=== PATIENT | female | born 1970 | race Caucasian/White ===

== ENCOUNTER 2025-05-09 21:13 | Emergency (ER) | payer MEDICARE, MEDICAID ==
[~2025-05-09] VITALS: Ht 162.6 cm; Wt 104.3 kg
[2025-05-09 21:24] VITALS: O2SAT 98
[2025-05-09] MEDS ORDERED: ATOR10TA PO (21:52)
[2025-05-09] MEDS ORDERED: METF-442 PO (21:53)
[2025-05-09] MEDS ORDERED: INSU100V37 SQ (21:53)
== END 2025-05-09 23:48 | disposition left against medical advice (07) ==
LOC: ER 21:20
DX: R42 Dizziness and giddiness (principal); H92.09 Otalgia, unspecified ear; E03.9 Hypothyroidism, unspecified; E11.9 Type 2 diabetes mellitus without complications; E78.5 Hyperlipidemia, unspecified; Z79.4 Long term (current) use of insulin; Z79.84 Long term (current) use of oral hypoglycemic drugs; Z53.21 Procedure and treatment not carried out due to patient leaving prior to being seen by health care provider
CPT/HCPCS: A4606; A4663